=== PATIENT | male | born 1995 | race Caucasian/White ===

== ENCOUNTER 2018-06-13 23:31 | Emergency (ER) | payer OTHER ==
[2018-06-13 23:42] VITALS: BP 138/70
[2018-06-13] MEDS ORDERED: PROPARACAINE 0.5% OPHTH DROPS 15 ML EACHEYE STA (23:47)
[2018-06-14] MEDS ORDERED: POLYMYXIN B/TRIMETH OPHTH DROPS RIGHTEYE STA (00:08)
--- NOTE | 2018-06-14 00:16 | ED Physician Documentation ---
PD HPI OPHTHO - Stated complaint Stated Complaint: R EYE INJURY - Chief complaint Chief Complaint: Heent - History obtained from History obtained from: Patient - History of Present Illness Timing - onset: How many hours ago (2) Timing - duration: Hours (2) Timing - details: Abrupt onset Pain level max: 3 Pain level now: 3 Location: Right Quality / character: Burning, Aching Associated symptoms: Redness, Tearing, FB sensation. No: Discharge, Matting Contributing factors[place] a plane) Similar symptoms before: Has not had sx before Recently seen: Not recently seen Review of Systems Constitutional: denies: Fever Eyes: denies: Loss of vision Throat: denies: Sore throat Cardiac: denies: Chest pain / pressure Respiratory: denies: Cough GI: denies: Vomiting, Diarrhea PD PAST MEDICAL HISTORY - Past Medical History Past Medical History: No - Past Surgical History Past Surgical History: No - Present Medications Home Medications: Ambulatory Orders Medication Instructions Recorded Confirmed Polymyxin B/Trimeth Ophth Drop 1 drops RIGHTEYE Q3H 7 Days #1 06/14/18 [Polytrim Ophth Drops] bottle - Allergies Allergies/Adverse Reactions: Allergies Allergy/AdvReac Type Severity Reaction Status Date / Time No Known Drug Allergies Allergy Verified 06/13/18 23:51 - Social History Does the pt smoke?: No Smoking Status: Never smoker Does the pt drink ETOH?: Yes Does the pt have substance abuse?: No - Immunizations Immunizations are current?: Yes - POLST Patient has POLST: No PD ED PE NORMAL - Vitals Vital signs reviewed: Yes - General General: Alert and oriented X 3, No acute distress - HEENT HEENT: Moist mucous membranes, Other (Right conjunctiva is injected. No uptake on fluorescein staining. No visible foreign bodies. PH is Approximately 7) - Neck Neck: Supple, no meningeal sign - Cardiac Cardiac: RRR, Strong equal pulses - Respiratory Respiratory: No respiratory distress, Clear bilaterally - Derm Derm: Warm and dry - Neuro Neuro: Alert and oriented X 3 Results - Vitals Vitals: Vital Signs - 24 hr 06/13/18 23:35 Temperature 36.4 C L Heart Rate 69 Respiratory 16 Rate Blood Pressure 138/70 H O2 Saturation 97 Oxygen O2 Source Room air PD MEDICAL DECISION MAKING - ED course Complexity details: considered differential, d/w patient ED course: Patient with a chemical exposure to the right eye. Irrigated for 15 minutes prior to arrival. Symptoms resolved with proparacaine. Will place on Polytrim ophthalmic. Normal pH. No ulceration. Patient counseled regarding signs and symptoms for which I believe and urgent re-evaluation would be necessary. Patient with good understanding of and agreement to plan and is comfortable going home at this time This document was made in part using voice recognition software. While efforts are made to proofread this document, sound alike and grammatical errors may occur. Departure - Departure Disposition: 01 Home, Self Care Clinical Impression: Chemical conjunctivitis of right eye Condition: Good Instructions: ED Chemical Conjunctivitis Follow-Up: [facility] [Provider Group] - Within 3 Days Prescriptions: Polymyxin B/Trimeth Ophth Drop [Polytrim Ophth Drops] 1 drops RIGHTEYE Q3H 7 Days #1 bottle Comments: Use the antibiotics as prescribed. Return if you worsen. Discharge Date/Time: 06/14/18 00:15
== END 2018-06-14 00:15 | disposition home or self-care (01) ==
LOC: ED 23:31
DX: T55.1X1A Toxic effect of detergents, accidental (unintentional), initial encounter (principal); H10.211 Acute toxic conjunctivitis, right eye; Y93.89 Activity, other specified; Y92.89 Other specified places as the place of occurrence of the external cause; Y99.0 Civilian activity done for income or pay
CPT/HCPCS: 99283; A9270; J3490

== ENCOUNTER 2019-04-25 23:32 | Emergency (ER) | payer OTHER ==
--- NOTE | 2019-04-25 23:58 | ED Physician Documentation ---
History of Present Illness - Stated complaint Stated Complaint: FEVER/DIZZY/COUGH - Chief complaint Chief Complaint: General - History obtained from History obtained from: Patient - History of Present Illness Timing: How many weeks ago (4) Improved by: nothing Worsened by: no exacerbating factors - Additonal information Additional information: c/o 1 month of generalized aches, sweats, chills, subjective fevers (but bought a thermometer and has been having fevers every day for this past week; he suspects he had fevers even before he bought the thermometer one week ago), cough that is increasingly frequent and productive. he was seen in ED 2 days ago, had negative flu swab and rapid strep was negative (unclear if culture is pending). he says he has also been seen six [place] seven [place] [facility] [place] has also had a mono test (negative result). thus far, no specific diagnosis except suspected viral illness (per patient). he presents due to ongoing symptoms , but greatest concern tonight was the high fever, with Tmax over 104 this evening. Review of Systems Constitutional: reports: Fever, Chills, Myalgias, Sweats. denies: Fatigue Ears: reports: Ear pain (left) Nose: reports: Congestion Throat: reports: Sore throat Cardiac: denies: Chest pain / pressure Respiratory: reports: Cough. denies: Dyspnea, Hemoptysis, Wheezing GI: reports: Reviewed and negative : denies: Dysuria, Frequency Skin: denies: Rash Musculoskeletal: denies: Joint swelling Neurologic: denies: Headache PD PAST MEDICAL HISTORY - Past Medical History Past Medical History: No - Past Surgical History Past Surgical History: No - Present Medications Home Medications: Ambulatory Orders Medication Instructions Recorded Confirmed Azithromycin [Zithromax] 250 mg PO DAILY #4 tablet 04/26/19 guaiFENesin/CODEINE [Robitussin AC] 10 ml PO Q6H PRN #100 udc 04/26/19 - Allergies Allergies/Adverse Reactions: Allergies Allergy/AdvReac Type Severity Reaction Status Date / Time No Known Drug Allergies Allergy Verified 04/25/19 23:39 - Social History Does the pt smoke?: No Smoking Status: Never smoker Does the pt drink ETOH?: Yes Does the pt have substance abuse?: No - Immunizations Immunizations are current?: Yes - POLST Patient has POLST: No PD ED PE NORMAL - Vitals Vital signs reviewed: Yes - General General: Alert and oriented X 3, No acute distress, Well developed/nourished - HEENT HEENT: PERRL, EOMI, Moist mucous membranes - Neck Neck: Supple, no meningeal sign - Cardiac Cardiac: No murmur - Respiratory Respiratory: No respiratory distress - Back Back: No CVA TTP - Derm Derm: No rash PD ED PE EXPANDED - HEENT HEENT: L TM red (mild TM erythema, centrally and superiorly), L TM dull, Swollen tonsils (mild, L>R. appearance is not s/o abscess), Tonsillar exudate (left) - Cardiac Cardiac: Tachy (mild), Regular Rhythm. No: Murmur Present - Respiratory Respiratory: Rhonchi (left middle/lower lung brown) Results - Vitals Vitals: Oxygen O2 Source Room air - Labs Labs: Laboratory Tests 04/26/19 00:00 Influenza A (Rapid) Negative Influenza B (Rapid) Negative - Rads (name of study) chest xray Radiology: Prelim report reviewed, See rad report PD MEDICAL DECISION MAKING - ED course Complexity details: reviewed results, re-evaluated patient, considered differential, d/w patient ED course: despite high fevers, patient is in NAD during this ED evaluation. he denies travel outside of country, both recent as well as past several months (thus low suspicion for nCorV or relapsing fever causes such as malaria). presentation would be c/w influenza except for the prolonged time course. flu swab tonight is again negative. he does have mild tonsillar swelling, particularly on the left with exudate. also left rhonchi with correlating infiltrate on xray. lastly, mild left OM noted. will place on antibiotics for pneumonia, broad coverage via IM rocephin and Z-pack. Departure - Departure Disposition: 01 Home, Self Care Clinical Impression: Pneumonia Qualifiers: Pneumonia type: due to unspecified organism Laterality: left Lung location: lower lobe of lung Qualified Code(s): J18.9 - Pneumonia, unspecified organism Pharyngitis Qualifiers: Pharyngitis/tonsillitis etiology: unspecified etiology Qualified Code(s): J02.9 - Acute pharyngitis, unspecified Otitis media Qualifiers: Otitis media type: suppurative Chronicity: acute Laterality: left Recurrence: non-recurrent Spontaneous tympanic membrane rupture: without spontaneous rupture Qualified Code(s): H66.002 - Acute suppurative otitis media without spontaneous rupture of ear drum, left ear Condition: Good Instructions: ED Pneumonia Adult Follow-Up: [facility] [Provider Group] - Within 3 Days ( ) Prescriptions: Azithromycin [Zithromax] 250 mg PO DAILY #4 tablet guaiFENesin/CODEINE [Robitussin AC] 10 ml PO Q6H PRN #100 udc PRN Reason: Cough Discharge Date/Time: 04/26/19 02:21
[2019-04-26] MEDS ORDERED: IBUPROFEN 600 MG TABLET PO STA (00:27)
[2019-04-26] MEDS ORDERED: guaiFENesin/CODEINE 5 ML UDC PO STA (00:27)
--- NOTE | 2019-04-26 01:00 | XRAY Report ---
Reason: cough, fever, rhonici (left) Procedure Date: 04/26/2019 Accession Number: [id number] / [id number] Procedure: XR - Chest 2 View X-Ray CPT Code: 75960 Final Report FULL RESULT: EXAM: CHEST RADIOGRAPHY EXAM DATE: 04/26/2019 12:51 AM CLINICAL HISTORY: Cough, fever, rhonchi (left). COMPARISON: None. TECHNIQUE: 2 views. FINDINGS: Lungs/Pleura: Ill-defined opacity in the apical segment of the left lower lobe. No pleural effusion. No pneumothorax. Mediastinum: Within exam limitations, the cardiomediastinal contour is normal. Other: None. IMPRESSION: Left lower lobe pneumonia. RADIA
[2019-04-26] MEDS ORDERED: LIDOCAINE 1% 2 ML VIAL MC ONE (01:35)
[2019-04-26] MEDS ORDERED: cefTRIAXone 1 GM VIAL IM STA (01:35)
[2019-04-26] MEDS ORDERED: AZITHROMYCIN 250 MG TABLET PO STA (01:35)
[2019-04-26 02:25] VITALS: BP 138/66
== END 2019-04-26 02:21 | disposition home or self-care (01) ==
LOC: ED 23:32
DX: J18.9 Pneumonia, unspecified organism (principal); J02.9 Acute pharyngitis, unspecified; H66.002 Acute suppurative otitis media without spontaneous rupture of ear drum, left ear
CPT/HCPCS: 71046; 87275; 87276; 96372; 99284; A9270

== ENCOUNTER 2020-01-12 13:36 | Emergency (ER) | payer OTHER ==
--- NOTE | 2020-01-12 13:59 | ED Physician Documentation ---
PD HPI CHEST PAIN - Stated complaint Stated Complaint: CHEST PRESSURE, SOA - Chief complaint Chief Complaint: Cardiac - History obtained from History obtained from: Patient - Additional information Additional information: Previously healthy 24-year-old gentleman presents with shortness of breath and palpitations. States that he occasionally has shortness of breath for a long time, its not that he short of breath so much is feel like he is not getting enough air. Over the last week or 2 he has had intermittent palpitations, like a fluttering, last minutes at a time. Some central chest soreness with it. No recent travel, pedal edema or calf pain. He has extensive family history of coronary disease, vague on the details but does not sound like anybody at a super young age except for a great grandfather starting in his 30s. Review of Systems Constitutional: reports: Reviewed and negative Throat: reports: Reviewed and negative Cardiac: reports: Chest pain / pressure, Palpitations. denies: Pedal edema, Calf pain Respiratory: reports: Dyspnea. denies: Cough PD PAST MEDICAL HISTORY - Past Surgical History Past Surgical History: No - Present Medications Home Medications: Ambulatory Orders Medication Instructions Recorded Confirmed Azithromycin [Zithromax] 250 mg PO DAILY #4 tablet 04/26/19 guaiFENesin/CODEINE [Robitussin AC] 10 ml PO Q6H PRN #100 udc 04/26/19 - Allergies Allergies/Adverse Reactions: Allergies Allergy/AdvReac Type Severity Reaction Status Date / Time morphine AdvReac Unknown Verified 01/12/20 13:41 - Social History Does the pt smoke?: No Smoking Status: Never smoker Does the pt drink ETOH?: Yes Does the pt have substance abuse?: No - Immunizations Immunizations are current?: Yes - POLST Patient has POLST: No PD ED PE NORMAL - Vitals Vital signs reviewed: Yes - General General: Alert and oriented X 3, No acute distress - HEENT HEENT: PERRL, EOMI - Neck Neck: Supple, no meningeal sign, No bony TTP - Cardiac Cardiac: RRR, No murmur - Respiratory Respiratory: No respiratory distress, Clear bilaterally - Abdomen Abdomen: Non tender - Derm Derm: Normal color, Warm and dry - Extremities Extremities: No edema, No calf tenderness / cord - Neuro Neuro: Alert and oriented X 3, Normal speech Results - Vitals Vitals: Vital Signs - 24 hr 01/12/20 13:41 Temperature 36.5 C Heart Rate 78 Respiratory 16 Rate Blood Pressure 136/77 H O2 Saturation 98 Oxygen O2 Source Room air - EKG (time done) 1338 Rate: Rate (enter#) (78) Rhythm: NSR [place]: Normal Intervals: Normal [place] QRS: Normal Ischemia: Normal ST segments Computer interpretation: Agree with computer - Labs Labs: Laboratory Tests 01/12/20 01/12/20 01/12/20 14:05 14:05 14:05 WBC 6.7 RBC 4.76 Hgb 14.8 Hct 43.2 MCV 90.8 MCH 31.1 H MCHC 34.3 RDW 11.9 L Plt Count 220 MPV 9.9 Neut # (Auto) 3.9 Lymph # (Auto) 1.9 [place] # (Auto) 0.7 Eos # (Auto) 0.1 Baso # (Auto) 0.0 Absolute Nucleated RBC 0.00 Nucleated RBC % 0.0 Sodium 138 Potassium 4.1 Chloride 101 Carbon Dioxide 27 Anion Gap 10.0 BUN 21 H Creatinine 0.9 Estimated GFR (MDRD) 106 Glucose 110 H Calcium 9.5 Total Bilirubin 0.8 AST 36 ALT 46 Alkaline Phosphatase 88 Troponin I High Sens 3.0 Total Protein 7.4 Albumin 4.3 Globulin 3.1 Albumin/Globulin Ratio 1.4 Lipase 23 PD MEDICAL DECISION MAKING - ED course ED course: 24-year-old gentleman with sensation of heart fluttering and chest discomfort and shortness of breath. PERC negative. Heart score is 0-1 depending on what you think of his vague family history. No ectopy here. Departure - Departure Disposition: 01 Home, Self Care Clinical Impression: Palpitations Condition: Good Record reviewed to determine appropriate education?: Yes Instructions: ED Chest Pain NonCardiac Comments: You were seen today for palpitations and chest discomfort. Your work-up was negative, normal EKG, troponin, chest x-ray, and basic labs. We are unable to see any abnormal heart rhythms while you are on the monitor. Talk with your doctor about a Holter monitor and/or echocardiography. Return if worse.
--- NOTE | 2020-01-12 14:24 | XRAY Report ---
PROCEDURE: Chest 1 View X-Ray INDICATIONS: Chest pain TECHNIQUE: One view of the chest was acquired. COMPARISON: 04/26/2019 FINDINGS: Surgical changes and devices: None. Lungs and pleura: No pleural effusions or pneumothorax. Lungs are clear. Mediastinum: Mediastinal contours appear normal. Heart size is normal. Bones and chest wall: No suspicious bony lesions. Overlying soft tissues appear unremarkable. IMPRESSION: 1. No acute cardiopulmonary disease. Reviewed by: Jin Chavira MD on 01/12/2020 2:23 PM PDT Approved by: Jin Chavira MD on 01/12/2020 2:23 PM PDT Station ID: [id number]
[2020-01-12 14:25] LABS: ALBUMIN 4.3 g/dL (3.2-5.5); ALBUMIN/GLOBULIN RATIO 1.4 (1.0-2.2); BILIRUBIN,TOTAL 0.8 mg/dL (0.2-1.0); CALCIUM 9.5 mg/dL (8.5-10.3); CREATININE 0.9 mg/dL (0.6-1.2); TOTAL PROTEIN 7.4 g/dL (6.7-8.2)
[2020-01-12 14:32] LABS: BASOPHILS % (AUTO) 0.6 %; EOSINOPHILS # (AUTO) 0.1 10^3/uL (0.0-0.7); EOSINOPHILS % (AUTO) 1.7 %; HGB - HEMOGLOBIN 14.8 g/dL (14.0-18.0); LYMPHOCYTES # (AUTO) 1.9 10^3/uL (1.5-3.5); LYMPHOCYTES % (AUTO) 28.4 %; MEAN CORPUSCULAR HEMOGLOBIN 31.1 pg (27.0-31.0); MEAN CORPUSCULAR HGB CONC 34.3 g/dL (32.0-36.0); MEAN CORPUSCULAR VOLUME 90.8 fL (80.0-94.0); MEAN PLATELET VOLUME 9.9 fL (7.4-11.4); MONOCYTES # (AUTO) 0.7 10^3/uL (0.0-1.0); MONOCYTES % (AUTO) 9.8 %; NEUTROPHILS # (AUTO) 3.9 10^3/uL (1.5-6.6); NEUTROPHILS % (AUTO) 59.2 %; PLT - PLATELET COUNT 220 10^3/uL (130-450); RED BLOOD COUNT 4.76 10^6/uL (4.70-6.10); RED CELL DISTRIBUTION WIDTH 11.9 % (12.0-15.0); WHITE BLOOD COUNT 6.7 x10^3/uL (4.8-10.8)
[2020-01-12 14:59] VITALS: BP 139/75
== END 2020-01-12 15:05 | disposition home or self-care (01) ==
LOC: ED 13:36
DX: R00.2 Palpitations (principal); R07.89 Other chest pain; R06.02 Shortness of breath
CPT/HCPCS: 36415; 71045; 80053; 83690; 84484; 85025; 93005; 99284

== ENCOUNTER 2020-03-30 19:18 | Emergency (ER) | payer OTHER ==
[2020-03-30] MEDS ORDERED: ALBUTEROL 1 PUFF INH STA (19:42)
--- NOTE | 2020-03-30 19:48 | ED Physician Documentation ---
History of Present Illness - Stated complaint Stated Complaint: SOA,LIGHTHEADED - Chief complaint Chief Complaint: Resp - History obtained from History obtained from: Patient - Additonal information Additional information: 23-year-old male presents the emergency department with a chief complaint of shortness of air. He reports that he simply cannot catch a full breath. He denies any cough or fever. No history of asthma. No hemoptysis or weight loss. He has no unilateral leg swelling. No personal history of blood clots or cancer. He denies chest pain. He is a non-smoker. Patient reports that he just sometimes feels like he has to breathe extra hard to take a full breath. Pt had a similar presentation in December Review of Systems Constitutional: reports: Reviewed and negative Eyes: reports: Reviewed and negative Ears: reports: Reviewed and negative Nose: reports: Reviewed and negative Throat: reports: Reviewed and negative Cardiac: reports: Reviewed and negative Respiratory: reports: Dyspnea. denies: Cough, Hemoptysis, Wheezing GI: denies: Abdominal Pain, Abdominal Swelling, Nausea, Vomiting, Constipation, Diarrhea : reports: Reviewed and negative Skin: reports: Reviewed and negative PD PAST MEDICAL HISTORY - Past Surgical History Past Surgical History: No - Present Medications Home Medications: Ambulatory Orders Medication Instructions Recorded Confirmed Azithromycin [Zithromax] 250 mg PO DAILY #4 tablet 04/26/19 guaiFENesin/CODEINE [Robitussin AC] 10 ml PO Q6H PRN #100 udc 04/26/19 - Allergies Allergies/Adverse Reactions: Allergies Allergy/AdvReac Type Severity Reaction Status Date / Time morphine AdvReac Unknown Verified 01/12/20 13:41 - Social History Does the pt smoke?: No Smoking Status: Never smoker Does the pt drink ETOH?: Yes Does the pt have substance abuse?: No - Immunizations Immunizations are current?: Yes - POLST Patient has POLST: No PD ED PE NORMAL - General General: Alert and oriented X 3, No acute distress - HEENT HEENT: PERRL - Neck Neck: Supple, no meningeal sign - Cardiac Cardiac: RRR, No murmur - Respiratory Respiratory: Clear bilaterally - Abdomen Abdomen: Normal bowel sounds, Soft, Non tender, Non distended - Back Back: No CVA TTP - Derm Derm: Normal color, Warm and dry, No rash - Extremities Extremities: No deformity, No tenderness to palpate - Neuro Neuro: Alert and oriented X 3, plastic molder 2-12 intact, No motor deficit Eye Opening: Spontaneous Motor: Obeys Commands Verbal: Oriented GCS Score: 15 Results - Vitals Vitals: Vital Signs - 24 hr 03/30/20 03/30/20 19:21 20:15 Temperature 36.6 C Heart Rate 69 70 Respiratory 18 16 Rate Blood Pressure 157/70 H O2 Saturation 99 Oxygen O2 Source Room air - EKG (time done) 1923 Rate: Rate (enter#) (67) Rhythm: NSR [place]: Normal Intervals: Normal [place] QRS: Normal Ischemia: Normal ST segments Compare to prior EKG: Unchanged from prior EKG Computer interpretation: Agree with computer - Labs Labs: Laboratory Tests 03/30/20 03/30/20 03/30/20 20:04 20:04 20:04 WBC 8.1 RBC 4.77 Hgb 14.3 Hct 41.7 L MCV 87.4 MCH 30.0 MCHC 34.3 RDW 11.8 L Plt Count 229 MPV 9.6 Neut # (Auto) 4.4 Lymph # (Auto) 2.8 [place] # (Auto) 0.7 Eos # (Auto) 0.1 Baso # (Auto) 0.0 Absolute Nucleated RBC 0.00 Nucleated RBC % 0.0 Sodium 139 Potassium 3.6 Chloride 104 Carbon Dioxide 25 Anion Gap 10.0 BUN 20 Creatinine 0.8 Estimated GFR (MDRD) 121 Glucose 98 Calcium 9.3 Total Bilirubin 0.4 AST 30 ALT 38 Alkaline Phosphatase 101 Troponin I High Sens < 2.3 L B-Natriuretic Peptide Total Protein 7.7 Albumin 5.0 Globulin 2.7 Albumin/Globulin Ratio 1.9 Lipase 21 L 03/30/20 20:04 WBC RBC Hgb Hct MCV MCH MCHC RDW Plt Count MPV Neut # (Auto) Lymph # (Auto) [place] # (Auto) Eos # (Auto) Baso # (Auto) Absolute Nucleated RBC Nucleated RBC % Sodium Potassium Chloride Carbon Dioxide Anion Gap BUN Creatinine Estimated GFR (MDRD) Glucose Calcium Total Bilirubin AST ALT Alkaline Phosphatase Troponin I High Sens B-Natriuretic Peptide 8 Total Protein Albumin Globulin Albumin/Globulin Ratio Lipase - Rads (name of study) CXR Radiology: EMP read indepedently (no acute findings) PD MEDICAL DECISION MAKING - ED course Complexity details: reviewed old records, reviewed results, re-evaluated patient, considered differential, d/w patient ED course: 24 year Old male presents to the emergency department for evaluation of chief complaint that he feels like he cannot catch a full breath of air. He had a similar presentation in December. He has no chest pain or pleuritic chest pain. He has had no fainting episodes. No cough. Chest x-ray is unremarkable. High- sensitivity troponin is negative. He is PERC negative. History is not consistent with ACS or PE. Heart score is 1. This gentleman was given albuterol here in the ED without a change in symptoms. I suspect that he may have a component of anxiety versus sighing dyspnea. Findings were discussed with the patient. He will continue to follow-up with [facility]. Departure - Departure Disposition: Home, Self Care Clinical Impression: Shortness of breath Condition: Stable Record reviewed to determine appropriate education?: Yes Comments: Ben your chest x-ray today is normal. Your EKG is normal. Your labs are also normal. You do not have pneumonia, you are not having a heart attack. It is extremely unlikely that you have a blood clot in your lungs. You may have some anxiety causing your symptoms. Another condition is called "sighing dyspnea". At this time no further treatment is necessary in the emergency department. I encourage you to continue to follow-up with [facility] and the stock checkerer that you have been referred to. Return to the emergency department if you develop chest pain, have any fainting episodes or discoloration of your lips.
[2020-03-30 20:13] LABS: BASOPHILS % (AUTO) 0.5 %; EOSINOPHILS # (AUTO) 0.1 10^3/uL (0.0-0.7); EOSINOPHILS % (AUTO) 1.7 %; HCT - HEMATOCRIT 41.7 % (42.0-52.0); HGB - HEMOGLOBIN 14.3 g/dL (14.0-18.0); LYMPHOCYTES # (AUTO) 2.8 10^3/uL (1.5-3.5); LYMPHOCYTES % (AUTO) 34.8 %; MEAN CORPUSCULAR HGB CONC 34.3 g/dL (32.0-36.0); MEAN CORPUSCULAR VOLUME 87.4 fL (80.0-94.0); MEAN PLATELET VOLUME 9.6 fL (7.4-11.4); MONOCYTES # (AUTO) 0.7 10^3/uL (0.0-1.0); MONOCYTES % (AUTO) 8.5 %; NEUTROPHILS # (AUTO) 4.4 10^3/uL (1.5-6.6); NEUTROPHILS % (AUTO) 54.3 %; PLT - PLATELET COUNT 229 10^3/uL (130-450); RED BLOOD COUNT 4.77 10^6/uL (4.70-6.10); RED CELL DISTRIBUTION WIDTH 11.8 % (12.0-15.0); WHITE BLOOD COUNT 8.1 x10^3/uL (4.8-10.8)
[2020-03-30 20:26] LABS: ALBUMIN/GLOBULIN RATIO 1.9 (1.0-2.2); BILIRUBIN,TOTAL 0.4 mg/dL (0.2-1.0); CALCIUM 9.3 mg/dL (8.5-10.3); CREATININE 0.8 mg/dL (0.6-1.2); POTASSIUM 3.6 mmol/L (3.5-5.0); TOTAL PROTEIN 7.7 g/dL (6.7-8.2)
[2020-03-30 20:56] VITALS: BP 121/101
--- NOTE | 2020-03-30 21:03 | XRAY Report ---
PROCEDURE: Chest 1 View X-Ray INDICATIONS: chest pain TECHNIQUE: One view of the chest was acquired. COMPARISON: None FINDINGS: Surgical changes and devices: None. Lungs and pleura: No pleural effusions or pneumothorax. Lungs are clear. Mediastinum: Mediastinal contours appear normal. Heart size is normal. Bones and chest wall: No suspicious bony lesions. Overlying soft tissues appear unremarkable. IMPRESSION: Normal chest x-ray Reviewed by: Denis Gagnon on 03/30/2020 9:01 PM [facility] Approved by: Denis Gagnon on 03/30/2020 9:01 PM [facility] Station ID: [id number]
== END 2020-03-30 21:00 | disposition home or self-care (01) ==
LOC: ED 19:18
DX: R06.02 Shortness of breath (principal)
CPT/HCPCS: 36415; 80053; 83690; 83880; 84484; 85025; 93005; 94640; 99283; 99284

== ENCOUNTER 2021-05-19 19:47 | Emergency (ER) | payer OTHER ==
[2021-05-19 19:53] VITALS: BP 148/83
[2021-05-19] MEDS ORDERED: methocarbamoL 500 MG TABLET PO STA (20:16)
--- NOTE | 2021-05-19 20:20 | ED Physician Documentation ---
PD HPI BACK PAIN - Stated complaint Stated Complaint: BACK PX - Chief complaint Chief Complaint: Back Pain - History obtained from History obtained from: Patient - History of Present Illness Timing - duration: Days Timing - details: Abrupt onset Pain level max: 8 Pain level now: 5 Location: Mid, Right Quality: Pain, Spasm Associated symptoms: No: Fever, Weakness, Numbness, Incontinent of urine, Unable to urinate, Hematuria, Incontinent of stool Improves with: Rest, Meds Worsened by: Movement Contributing factors: No: Lifting, Twisting, Trauma, Anticoagulated, Cancer, IVDA, Out of meds - Additional information Additional information: Patient is a 26-year-old male who presents to the emergency department with back pain. He states that this started earlier today. He states that he believes that he slept wrong. He then got up to go to the bathroom, lifted the toilet seat to use the toilet and upon replacing the toilet seat felt a sharp pain in his back and muscle spasm. Has continued to be painful throughout the day. Better with Motrin, worse with movement. Also feels better leaning forward. Has never had similar symptoms previously. Review of Systems Ten Systems: 10 systems reviewed and negative Constitutional: denies: Fever, Chills GI: denies: Nausea, Vomiting, Diarrhea : denies: Incontinent Skin: denies: Rash Neurologic: denies: Headache PD PAST MEDICAL HISTORY - Past Medical History Past Medical History: No - Past Surgical History Past Surgical History: No - Present Medications Home Medications: Ambulatory Orders Medication Instructions Recorded Confirmed Meloxicam [Mobic] 7.5 mg PO BID PRN #20 tablet 05/19/21 methocarbamoL [Robaxin] 500 mg PO Q6H PRN #20 tablet 05/19/21 - Allergies Allergies/Adverse Reactions: Allergies Allergy/AdvReac Type Severity Reaction Status Date / Time morphine AdvReac Unknown Verified 05/19/21 19:54 - Living Situation Living Arrangement: reports: At home - Social History Does the pt smoke?: No Smoking Status: Never smoker Does the pt drink ETOH?: Yes Does the pt have substance abuse?: No - Immunizations Immunizations are current?: Yes - POLST Patient has POLST: No PD ED PE NORMAL - Vitals Vital signs reviewed: Yes - General General: Alert and oriented X 3, No acute distress - HEENT HEENT: Moist mucous membranes - Neck Neck: Supple, no meningeal sign - Cardiac Cardiac: RRR, Strong equal pulses - Respiratory Respiratory: No respiratory distress, Clear bilaterally - Abdomen Abdomen: Soft, Non tender, Non distended - Back Back: No spinal TTP, Other (Paraspinal spasm bilateral lower thoracic and upper lumbar, right greater than left.) - Derm Derm: Warm and dry - Extremities Extremities: No deformity - Neuro Neuro: Alert and oriented X 3, No motor deficit, No sensory deficit, Other (Normal bilateral lower extremity patellar and ankle jerk reflexes. Normal great toe extension bilaterally. no saddle anesthesia) - Psych Psych: Normal mood, Normal affect Results - Vitals Vitals: Vital Signs - 24 hr 05/19/21 19:50 Temperature 35.6 C L Heart Rate 80 Respiratory 18 Rate Blood Pressure 148/83 H O2 Saturation 98 Oxygen O2 Source Room air PD MEDICAL DECISION MAKING - ED course Complexity details: considered differential (No cauda equina, no spinal epidural abscess, no fracture, no aortic dissection or evidence of aneursym rupture), d/w patient ED course: Patient with what appears to be muscle spasm. Possible spinal stenosis as well. He does feel better when leaning over. No evidence of aneurysm. We will place on pain medication muscle relaxants and have him follow-up with his doctor for further care. Ambulating well. Patient counseled regarding signs and symptoms for which I believe and urgent re-evaluation would be necessary. Patient with good understanding of and agreement to plan and is comfortable going home at this time This document was made in part using voice recognition software. While efforts are made to proofread this document, sound alike and grammatical errors may occur. Departure - Departure Disposition: 01 Home, Self Care Clinical Impression: Back spasm Back pain Qualifiers: Back pain location: low back pain Chronicity: acute Back pain laterality: right Sciatica presence: without sciatica Qualified Code(s): M54.50 - Low back pain, unspecified Condition: Good Instructions: ED Neck Back Pain General Follow-Up: your,doctor in 1 week [Other] Prescriptions: Meloxicam [Mobic] 7.5 mg PO BID PRN #20 tablet PRN Reason: Pain methocarbamoL [Robaxin] 500 mg PO Q6H PRN #20 tablet PRN Reason: muscle spasm Comments: Your prescriptions were sent to [facility]. Please follow-up with your doctor for further care. Return if you worsen. Continue to gently stretch your back. It is possible that you have some neuroforaminal stenosis and/or spinal stenosis. Your doctor may want to perform an MRI of your back when the inflammation has decreased. Discharge Date/Time: 05/19/21 20:51
[2021-05-19] MEDS ORDERED: DEXAMETHASONE 10 MG/ML VIAL PO STA (20:24)
[2021-05-19] MEDS ORDERED: CHERRY SYRUP 10 ML UDC PO ONE (20:24)
== END 2021-05-19 20:51 | disposition home or self-care (01) ==
LOC: ED 19:47
DX: M54.50 Low back pain, unspecified (principal)
CPT/HCPCS: 99282; A9270